=== PATIENT | female | born 1965 | race Caucasian/White ===

== ENCOUNTER 2022-04-13 10:12 | Outpatient (CLI) | payer OTHER, SELFPAY ==
[2022-04-13 15:09] LABS: Chloride* 105 mmol/L (96-114); Sodium* 141 mmol/L (135-149)
[2022-04-13 15:11] LABS: Cholesterol* 219 mg/dL (90-199); Creatinine* 0.9 mg/dL (0.5-1.5); Estimated Glomerular Filt Rate 75 ml/min
[2022-04-13 15:12] LABS: Blood Urea Nitrogen* 20 mg/dL (7-30); Calcium* 9.9 mg/dL (8.4-10.6); Carbon Dioxide* 23 mmol/L (20-32); Glucose* 117 mg/dL (60-115); Triglycerides* 119 mg/dL (40-149)
[2022-04-13 15:13] LABS: HDL Cholesterol* 44 mg/dL (>=50); LDL Cholesterol Calculated 151 mg/dL (<100)
== END 2022-04-13 10:13 | disposition home or self-care (01) ==
PROVIDERS: PCP Nurse Practitioner Family; Visit Provider Nurse Practitioner Family
DX: I10 Essential (primary) hypertension (principal); R73.09 Other abnormal glucose; E78.5 Hyperlipidemia, unspecified; F41.9 Anxiety disorder, unspecified; R00.2 Palpitations; Z51.81 Encounter for therapeutic drug level monitoring
CPT/HCPCS: 80048; 80061; 84443

== ENCOUNTER 2022-04-14 10:20 | Outpatient (CLI) | payer OTHER, SELFPAY ==
[2022-04-14 15:36] LABS: Basophils Absolute Auto 0.01 K/uL (0.00-0.30); Basophils Percent Auto 0.2 % (0.0-3.0); Eosinophils Absolute Auto 0.09 K/uL (0.00-0.50); Eosinophils Percent Auto 1.4 % (0.0-7.0); Hematocrit 39.5 % (33.0-51.0); Hemoglobin* 12.2 gm/dL (12.0-16.0); Immature Granulocytes Abs Auto 0.01 K/uL (0.00-0.30); Immature Granulocytes Pct Auto 0.2 %; Lymphocytes Absolute Auto 2.19 K/uL (0.90-2.90); Lymphocytes Percent Auto 33.6 % (20-44); Mean Corpuscular HGB Conc 31 gm/dL (32-36); Mean Corpuscular Hemoglobin 25 pg (26-34); Mean Corpuscular Volume 82 fL (80-100); Monocytes Percent Auto 6.6 % (0.0-11.0); Neutrophils Absolute Auto 3.79 K/uL (1.7-7.0); Platelet Count* 250 K/uL (140-440); Red Blood Count 4.83 m/uL (4.00-5.20); White Blood Count* 6.52 K/uL (4.50-11.00)
[2022-04-14 15:42] LABS: Slide Review Reflex No
[2022-04-14 16:13] LABS: Magnesium* 2.1 mg/dL (1.5-2.6)
== END 2022-04-14 10:21 | disposition home or self-care (01) ==
PROVIDERS: PCP Nurse Practitioner Family; Visit Provider Nurse Practitioner Family
DX: R00.2 Palpitations (principal); E78.5 Hyperlipidemia, unspecified; I10 Essential (primary) hypertension; Z51.81 Encounter for therapeutic drug level monitoring
CPT/HCPCS: 83735; 85025

== ENCOUNTER 2022-04-17 08:25 | Outpatient (CLI) | payer OTHER, SELFPAY ==
[2022-04-17 09:47] LABS: Albumin* 5.1 g/dL (3.3-5.0)
[2022-04-17 09:50] LABS: Alanine Aminotransferase* 20 U/L (4-35); Alkaline Phosphatase* 77 U/L (40-150); Aspartate Amino Transferase* 27 U/L (12-35); Bilirubin Direct* 0.2 mg/dL (0.0-0.5); Bilirubin Total* 0.6 mg/dL (0.1-1.5); Total Protein* 8.3 g/dL (6.0-8.3)
== END 2022-04-17 08:26 | disposition home or self-care (01) ==
LOC: KYNREF 08:26
PROVIDERS: PCP Nurse Practitioner Family; Visit Provider Nurse Practitioner Family
DX: Z51.81 Encounter for therapeutic drug level monitoring (principal)
CPT/HCPCS: 80076

== ENCOUNTER 2022-04-25 12:27 | Outpatient (CLI) | payer OTHER, SELFPAY | END 2022-04-25 12:28 | disposition home or self-care (01) | LOC: RAD 12:30 | PROVIDERS: PCP Nurse Practitioner Family; Visit Provider Nurse Practitioner Family | DX: R00.2 Palpitations (principal) | CPT/HCPCS: 93225; 93226 ==

== ENCOUNTER 2023-03-30 08:22 | Outpatient (CLI) | payer BC, SELFPAY | END 2023-03-30 08:23 | disposition home or self-care (01) | PROVIDERS: PCP Nurse Practitioner Family; Visit Provider Nurse Practitioner Family | DX: I10 Essential (primary) hypertension (principal); E78.2 Mixed hyperlipidemia | CPT/HCPCS: 80053; 80061; 85025 ==

== ENCOUNTER 2023-10-08 14:21 | Outpatient (CLI) | payer BC, SELFPAY | END 2023-10-08 14:22 | disposition home or self-care (01) | PROVIDERS: PCP Nurse Practitioner Family; Visit Provider Nurse Practitioner Family | DX: E78.2 Mixed hyperlipidemia (principal) | CPT/HCPCS: 80061 ==

== ENCOUNTER 2024-01-10 04:56 | Outpatient (CLI) | payer BC, SELFPAY | END 2024-01-10 04:57 | disposition home or self-care (01) | PROVIDERS: PCP Nurse Practitioner Family; Visit Provider Nurse Practitioner Family | DX: E78.2 Mixed hyperlipidemia (principal) | CPT/HCPCS: 80061; 80076 ==

== ENCOUNTER 2024-04-08 08:56 | Outpatient (CLI) | payer BC, SELFPAY | END 2024-04-08 08:57 | disposition home or self-care (01) | PROVIDERS: PCP Nurse Practitioner Family; Visit Provider Nurse Practitioner Family | DX: E78.2 Mixed hyperlipidemia (principal); I10 Essential (primary) hypertension; Z13.0 Encounter for screening for diseases of the blood and blood-forming organs and certain disorders involving the immune mechanism; Z79.899 Other long term (current) drug therapy | CPT/HCPCS: 80053; 80061; 85025 ==

== ENCOUNTER 2024-04-14 09:11 | Outpatient (CLI) | payer BC, SELFPAY ==
--- NOTE | 2024-04-14 09:30 | CRLHL7_ITS ---
For Patients: As a result of the Century Cures Act, medical imaging exams and procedure reports are released immediately into your electronic medical record. You may view this report before your referring provider. If you have questions, please contact your health care provider. INDICATION: History of gallbladder polyps TECHNIQUE: Conventional two-dimensional grayscale ultrasound of the right upper quadrant. COMPARISON: 02/02/2017 FINDINGS: A number of small gallbladder polyps are again demonstrated, the largest measuring up to 4 mm. No gallstone is evident. No gallbladder wall thickening or pericholecystic fluid is demonstrated. The patient is reportedly not tender over the gallbladder. No biliary ductal dilation is evident. The common bile duct measures 4 mm. The liver is grossly negative. The portal vein is normal in caliber and there is hepatopetal portal vein flow. The pancreas is within normal limits. The right kidney is unremarkable except for a 0.9 cm angiomyolipoma which was measured at 0.8 cm on the previous exam. The visualized portion of the abdominal aorta and inferior vena cava are negative. IMPRESSION: 1. Stable small gallbladder polyps. 2. 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 Dictated by David Marshall MD @ 04/14/2024 3:02:22 PM (Electronically Signed)
== END 2024-04-14 09:12 | disposition home or self-care (01) ==
LOC: US 09:12
PROVIDERS: PCP Nurse Practitioner Family; Visit Provider Nurse Practitioner Family
DX: K82.4 Cholesterolosis of gallbladder (principal); D17.71 Benign lipomatous neoplasm of kidney
CPT/HCPCS: 76705

== ENCOUNTER 2024-07-28 09:58 | Outpatient (CLI) | payer BC, SELFPAY ==
[2024-07-28 14:44] LABS: Strep A DNA Probe* NOT DETECTED (Not Detectd)
[2024-07-28 14:55] LABS: PCR FLU A Negative PCR FLU A (Negative); PCR FLU B Negative PCR FLU B (Negative); PCR RSV Negative PCR RSV (Negative); SARS PCR* Negative SARS-CoV-2 (Negative)
== END 2024-07-28 09:59 | disposition home or self-care (01) ==
PROVIDERS: PCP Nurse Practitioner Family; Visit Provider Nurse Practitioner Family
DX: J11.1 Influenza due to unidentified influenza virus with other respiratory manifestations (principal)
CPT/HCPCS: 87637; 87651